=== PATIENT | male | born 1980 | race Caucasian/White ===

== ENCOUNTER 2024-01-27 03:49 | Emergency (ER) | payer MEDICAID ==
[~2024-01-27] VITALS: Ht 167.6 cm; Wt 84.4 kg
[2024-01-27 04:06] VITALS: BP 125/80; PULSE 95; RESP 14; TEMP 97.5; O2SAT 99
[2024-01-27] MEDS ORDERED: FURO-572 PO (05:23)
== END 2024-01-27 05:30 | disposition home or self-care (01) ==
LOC: MED 03:49 → EDBD 03:49 → MED 05:30
DX: I11.0 Hypertensive heart disease with heart failure (principal); I50.9 Heart failure, unspecified; Z76.0 Encounter for issue of repeat prescription; Z79.899 Other long term (current) drug therapy
CPT/HCPCS: 99281

== ENCOUNTER 2024-02-01 01:19 | Emergency (ER) | payer MEDICAID ==
[~2024-02-01] VITALS: Ht 167.6 cm; Wt 86.2 kg
[~2024-02-01 01:19] MED LIST: FURO-572 PO
[2024-02-01 01:27] VITALS: BP 103/70; PULSE 108; RESP 16; TEMP 97.7; O2SAT 99
[2024-02-01 03:22] VITALS: BP 103/70; PULSE 108; RESP 16; TEMP 97.7; O2SAT 99
[2024-02-01] MEDS ORDERED: DEXT15EL PO (03:23)
[2024-02-01] MEDS ORDERED: MIRABULK PO (03:23)
== END 2024-02-01 03:42 | disposition home or self-care (01) ==
LOC: MED 01:19
DX: R05.9 Cough, unspecified (principal); K59.00 Constipation, unspecified; I11.0 Hypertensive heart disease with heart failure; I50.9 Heart failure, unspecified; Z79.899 Other long term (current) drug therapy
CPT/HCPCS: 71045; 99283

== ENCOUNTER 2024-02-12 01:10 | Emergency (ER) | payer MEDICAID ==
[~2024-02-12] VITALS: Ht 170.2 cm; Wt 83.0 kg
[~2024-02-12 01:10] MED LIST changes: +DEXT15EL PO; +MIRABULK PO
[2024-02-12 01:22] VITALS: BP 100/71; PULSE 106; RESP 18; TEMP 97.8; O2SAT 98
[2024-02-12 02:01] LABS: FLU A ANTIGEN negative (NEGATIVE); FLU B ANTIGEN NEGATIVE (NEGATIVE)
[2024-02-12] MEDS ORDERED: PROM118S5 PO (02:12)
[2024-02-12] MEDS ORDERED: AZIT250T4 PO (02:12)
[2024-02-12 02:24] VITALS: BP 100/71; PULSE 106; RESP 18; TEMP 97.8; O2SAT 98
[2024-02-12] MEDS ORDERED: ACET-9882 PO (05:31)
[2024-02-12] MEDS ORDERED: AMOX1TAB8 PO (05:31)
[2024-02-12] MEDS ORDERED: IBUP-2213 PO (05:31)
== END 2024-02-12 02:24 | disposition home or self-care (01) ==
LOC: MED 01:10
DX: J06.9 Acute upper respiratory infection, unspecified (principal); Z20.822 Contact with and (suspected) exposure to COVID-19; I11.0 Hypertensive heart disease with heart failure; I50.9 Heart failure, unspecified; Z79.2 Long term (current) use of antibiotics; Z79.899 Other long term (current) drug therapy
CPT/HCPCS: 71045; 87081; 99284

== ENCOUNTER 2024-02-12 03:44 | Emergency (ER) | payer MEDICAID ==
[~2024-02-12] VITALS: Ht 170.2 cm; Wt 77.1 kg
[~2024-02-12 03:44] MED LIST changes: +AZIT250T4 PO; +PROM118S5 PO
[2024-02-12 03:46] VITALS: BP 141/120; PULSE 58; RESP 22; TEMP 98; O2SAT 98
[2024-02-12 04:00] VITALS: BP 133/86; PULSE 62; RESP 22
[2024-02-12] MEDS: HYDROcodone/APAP 5/325 MG 1 TAB TAB PO ONE (04:03)
[2024-02-12] MEDS: LIDOCAINE 2% 1000 MG/50 ML VIAL INJ ONE (04:05)
[2024-02-12 04:35] VITALS: O2SAT 98
[2024-02-12] MEDS ORDERED: BACITRACIN OINT 500 UNITS/GM PKT TP ONE (05:22)
[2024-02-12] MEDS: AMOXIL/CLAVULANATE 875/125 MG 1 TAB PO ONE (05:27)
[2024-02-12] MEDS: BACITRACIN OINT 500 UNITS/GM PKT TP ONE (05:27)
[2024-02-12] MEDS ORDERED: ACET-9882 PO (05:31)
[2024-02-12] MEDS ORDERED: IBUP-2213 PO (05:31)
[2024-02-12] MEDS ORDERED: AMOX1TAB8 PO (05:31)
== END 2024-02-12 05:40 | disposition home or self-care (01) ==
LOC: MED 03:44
DX: S62.501A Fracture of unspecified phalanx of right thumb, initial encounter for closed fracture (principal); I10 Essential (primary) hypertension; Z79.899 Other long term (current) drug therapy; Z79.2 Long term (current) use of antibiotics; X99.1XXA Assault by knife, initial encounter; Y93.89 Activity, other specified; Y92.89 Other specified places as the place of occurrence of the external cause; Y99.8 Other external cause status
CPT/HCPCS: 12001; 29130; 73140; 99284; J2001; Q0092

== ENCOUNTER 2024-03-05 12:09 | Emergency (ER) | payer MEDICAID ==
[~2024-03-05] VITALS: Ht 170.2 cm; Wt 79.9 kg
[~2024-03-05 12:09] MED LIST changes: +ACET-9882 PO; +AMOX1TAB8 PO; +IBUP-2213 PO
[2024-03-05 12:27] VITALS: BP 114/84; PULSE 106; RESP 18; TEMP 97.7; O2SAT 100
[2024-03-05] MEDS ORDERED: ATA25 PO (14:31)
[2024-03-05] MEDS ORDERED: BENZ200C4 PO (14:31)
== END 2024-03-05 15:00 | disposition home or self-care (01) ==
LOC: MED 12:09
DX: R18.8 Other ascites (principal); F41.9 Anxiety disorder, unspecified; I11.0 Hypertensive heart disease with heart failure; I50.9 Heart failure, unspecified; Z79.899 Other long term (current) drug therapy
CPT/HCPCS: 99284